=== PATIENT | male | born 1960 | race Caucasian/White ===

== ENCOUNTER 2020-01-19 18:57 | Inpatient (IN) | payer SELFPAY ==
[2020-01-19] VITALS (14 sets, daily range): BP systolic 135–175; BP diastolic 58–96; PULSE 108–146; RESP 18–41; TEMP 37–37.2; O2SAT 97–99; BMI 32.5
--- NOTE | 2020-01-19 19:11 | ECG_ITS ---
[facility] Test Date: 2020-01-19 Pat Name: Bari Casanova Department: Room: Gender: Male Beck Operator: : 1960 Requested By: Chantal Saini Order Number: [id number] Joao MD: Alvarado Julien M.D. Measurements Intervals [place] Rate: 114 P: 37 UT: 170 QRS: 66 QRSD: 108 T: -6 QT: 384 QTc: 529 Interpretive Statements SINUS TACHYCARDIA POSSIBLE LEFT ATRIAL ENLARGEMENT [-0.1mV P WAVE IN V1/V2] NONSPECIFIC ST & T-WAVE ABNORMALITY Compared to ECG 10/08/2018 22:37:24 T-wave abnormality now present Sinus rhythm no longer present Short UT interval no longer present Intraventricular conduction delay no longer present ST (T wave) deviation no longer present Prolonged QT interval no longer present Electronically Signed On 01-20-2020 21:12:57 CDT by Alvarado Julien M.D. [id number]
[2020-01-19 19:26] LABS: Basophils % 0.4 %; Hematocrit 38.3 % (42.0-52.0); Lymphocytes # 0.9 10^3/uL (0.8-4.8); Lymphocytes % 8.1 %; Mean Corpuscular HGB Conc 33.9 g/dL (30.0-36.0); Mean Corpuscular Hemoglobin 34.3 pg (28.0-34.0); Mean Corpuscular Volume 101.1 fL (80-94); Mean Platelet Volume 10.3 fL (7.4-10.4); Monocytes # 1.4 10^3/uL (0.2-0.9); Monocytes % 12.9 %; Neutrophils # 8.24 10^3/uL (1.8-7.7); Neutrophils % 77.9 %; Nucleated Red Blood Cells % 0 %; Platelet Count 166 10^3/cmm (130-400); Red Blood Count 3.79 10^6/uL (4.1-5.3); Red Cell Distribution Width 13.8 % (12.1-15.1); White Blood Count 10.6 10^3/uL (4.0-10.0)
[2020-01-19] MEDS: LORazepam 2 mg/mL INJ 1 mL IVP ×2 (19:30→22:36)
[2020-01-19] MEDS: sodium chloride 0.9% 1,000 ML 999 ML IV (19:30)
[2020-01-19 19:40] LABS: INR 3.04 (0.8-1.2)
[2020-01-19 19:48] LABS: Troponin(5th) Baseline 43 ng/L (0-15)
[2020-01-19 19:49] LABS: Alanine Aminotransferase 22 U/L (0-41); Alkaline Phosphatase 81 IU/L (40-130); Aspartate Amino Transferase 108 U/L (0-40); Blood Urea Nitrogen 14 mg/dL (6-20); Calcium 9.1 mg/dL (8.5-10.5); Carbon Dioxide 19 mmol/L (22-29); Chloride 94 mmol/L (98-107); Globulin 3.3 g/dL (1.3-4.6); Glomerular Filtration Rate 41.8 mL/min (90-130); Glucose 77 mg/dL (65-115); Lipase 26 U/L (13-60); Magnesium 1.1 mg/dL (1.7-2.3); Osmolality Calculated 277 mOsm/kg (285-295); Sodium 136 mmol/L (136-145); Total Bilirubin 1.7 mg/dL (0.15-1.2); Total Protein 7.3 g/dL (6.6-8.7)
--- NOTE | 2020-01-19 19:57 | CTR_ITS ---
PROCEDURE INFORMATION: Exam: CT Head Without Contrast Exam date and time: 01/19/2020 8:03 PM Age: 59 years old Clinical indication: Altered mental status/memory loss; Confusion or disorientation; Additional info: AMS, fall TECHNIQUE: Imaging protocol: Computed tomography of the head without contrast. Radiation optimization: All CT scans at this facility use at least one of these dose optimization techniques: automated exposure control; mA and/or kV adjustment per patient size (includes targeted exams where dose is matched to clinical indication); or iterative reconstruction. ADDITIONAL STUDY INFORMATION: Total DLP (mGy-cm): 1114.39 COMPARISON: CT head wo con* [id number] 10/08/2018 9:37 PM FINDINGS: There is mild low density in the periventricular white matter which may represent chronic small vessel ischemic disease in the appropriate clinical setting. There are prominent intracranial arterial calcifications. There is mild cerebral cortical volume loss. Ventricles do not appear significantly dilated. No depressed calvarial fracture is demonstrated. Again demonstrated is opacification in visualized right sphenoid sinus, most compatible with mucosal disease, with wall thickening of this sinus. Visualized mastoid air cells demonstrate no significant opacification. CT/CT head wo con* [id number] IMPRESSION: Probable chronic ischemic changes as discussed above. Radiation Dose CTDIVOL = (mGy): DLP = 1114.39 (mGy-cm)
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
[2020-01-19 20:06] LABS: Alcohol Level < 10 mg/dL (0-10)
[2020-01-19 20:07] LABS: Creatine Phosphokinase 7272 U/L (39-308)
--- NOTE | 2020-01-19 20:08 | USCV_ITS ---
MoisesBari quintana Age: 59 Gender: M : 1960 Exam Date: 01/19/2020 20:47 Ordering Phys: Chantal Vidal MD Technologist: Monica Sadler [place]am [place] [facility] [place]: Swelling HISTORY: Lower extremity swelling. PROCEDURES: Venous duplex imaging was performed in bilateral lower extremities. The following venous structures were evaluated: common femoral vein, profunda vein, proximal portion of the greater saphenous vein, superficial femoral vein, and the popliteal vein. In addition, the posterior tibial and peroneal trunk were evaluated. FINDINGS: Limited study due to patient motion. Patient was unable to follow instructions during exam. There is evidence of thrombus noted in the proximal right GSV extending to [place]. All other veins imaged appear to be free of thrombus at this time. The left popliteal and peroneals were not imaged due to patient refusal. CONCLUSIONS Right GSV superficial thrombophlebitis. No DVT but study limited by lack of patient cooperation. Dr. Ciara Wang DO (Electronically Signed) Final Date: 20 January 2020 07:47 S
[2020-01-19 20:19] LABS: Ammonia 15 umol/L (16-60); Lactic Sepsis W/Reflex 1.8 mmol/L (0.5-2.2)
[2020-01-19] MEDS: folic acid 1 MG, multivitamin inj 10 ML, thiamine 100 MG in sodium chloride 0.9% 1,000 ML 252.8 MG IV (20:30)
--- NOTE | 2020-01-19 21:11 | XR_ITS ---
WS: [id number] PORTABLE CHEST HISTORY: cough COMPARISON: 09/06/2018 Mild pulmonary venous congestion and haziness over both lungs. No focal consolidation. No pleural eff usion or pneumothorax. Cardiac size: Normal. Mediastinum/Aorta: Normal mediastinum. No osseous abnormality seen. XR/XR chest 1V portable [id number] IMPRESSION: Mild diffuse interstitial edema or viral pneumonia.
[2020-01-19 21:17] LABS: Amphetamines Screen Urine Negative (Negative); Barbiturates Screen Urine Negative (Negative); Benzodiazepines Screen Urine Negative (Negative); Cocaine Screen Urine Negative (Negative); Opiate Screen Urine Negative (Negative); PCP Screen Urine Negative (Negative); THC Screen Urine Negative (Negative)
--- NOTE | 2020-01-19 21:20 | P.HP_ITS ---
Providers/Chief Complaint Primary Care Provider: Beto Thomas Chief Complaint: AMS History of Present Illness Bari Casanova is a 59 year old male who presented with altered mental status. Apparently EMS was called from fall. When they arrived they found the patient at the top of the stairs, not recalling any fall. He was brought into the emergency department, with confusion. He had multiple confabulated stories. Emergency department physician was very concerned he was having active withdrawal and hallucinations. When I visited with the patient he had already received some Ativan. He would make eye contact with me briefly, and then start talking about Beavis and Butthead. Further history from the patient was not obt ainable. Review of Systems General: Reports: ROS unobtainable due to mental status (Unobtainable secondary to patient's confusion.) Medications/Allergies Home Medications Medication Instructions Recorded Confirmed Last Taken Type atenolol 50 mg PO DAILY 01/19/20 01/19/20 Unknown History potassium chloride 10 meq PO DAILY 01/19/20 01/19/20 Unknown History warfarin 5 mg PO DAILY 01/19/20 01/19/20 Unknown History Allergies Allergy/AdvReac Type Severity Reaction Status Date / Time No Known Allergies Allergy Verified 01/19/20 19:12 PFSH Acute PFSH: Medical History (Updated 01/19/20 @ 21:51 by Fran Milligan MD) Alcoholism History of DVT (deep vein thrombosis) On Coumadin Hypertension Social History (Updated 01/19/20 @ 21:45 by Farn Milligan MD) Alcohol intake: current Supplemental PFSH Information: Unable to obtain adequate surgical history secondary to mental status. Unable to obtain family history as well. Social history in part obtained from old records. History of drinking 1/5 a day and smoking a pack a day. Vitals/I&O/Wt Last Vital Signs Temp 98.9 F 01/19/20 19:01 Pulse 114 H 01/19/20 19:01 Resp 22 H 01/19/20 19:01 BP 146/88 01/19/20 19:01 Pulse Ox 98 01/19/20 19:01 Weight last 48 hrs Weight 99.79 kg Physical Exam Narrative: EXAM NARRATIVE: General exam is a white male, somewhat tremulous and tachycardic who appears to be having some hallucinations. HEENT: Pupils equally round. Oropharynx clear. Dentition poor Neck supple. No obvious tenderness. No lymphadenopathy. Cardiovascular tachycardic, no murmur Lungs clear no wheezing or crackles Abdomen is soft, obese. No obvious masses. was deferred Extremities no cyanosis clubbing or edema, cap refill brisk. Abrasions noted bilateral knees Skin no rash Neurologic: Moves all 4 extremities. No obvious focal deficits but certainly confused. Data : 01/19/20 19:19 01/19/20 19:19 Other data: Chest x-ray per my read poor inspiration causing appearance of vascular congestion. INR 3.04 Magnesium level 1.1 Total bili 1.7 AST 108, ALT 22, alk phos 81. CK 7272 Troponin 43 with repeat pending. Urinalysis with 2+ blood, positive nitrates, 1+ bacteria but 0-4 reds and 0-4 whites Urine drug screen negative Alcohol level less than 10 CT head by my read no obvious intracranial hemorrhage, awaiting final report EKG tachycardia, normal axis, nonspecific ST-T wave changes. Ammonia level 15 Lipase 26 A&P Assessment and plan (1) Alcohol withdrawal delirium: Admission to ICU Hydration CIWA protocol. Ativan, Librium. If worsens may need transition to Precedex Accu-Chek q. before meals at bedtime and as needed. Status: Acute (2) Rhabdomyolysis: IV fluids 175 cc an hour Status: Acute Qualifiers: Rhabdomyolysis type: non-traumatic Qualified Code(s): M62.82 - Rhabdomyolysis (3) Acute hypokalemia: Supplement Status: Acute (4) Hypomagnesemia: Supplement Status: Acute (5) Elevated bilirubin: Likely secondary to alcoholism and may have some element of cirrhosis. Recheck in the morning Status: Acute Additional A&P Information Possible UTI. Rocephin ordered by emergency department. Continue currently and await culture. History of DVT, on Coumadin, with slightly supratherapeutic INR. Check INR daily. Holding Coumadin currently in case procedure is needed, and INR being supratherapeutic. History of hypertension. Continue atenolol Full code SCDs for DVT prophylaxis. INR is supratherapeutic. Reassess Coumadin and s afety of it tomorrow. Attestations Medical Necessity Statement*: Will need greater than 2 midnight stay secondary to alcohol withdrawal Critical Care Time: 46 minutes spent in critical care time reviewing the patient, history, discussion with ER physician in this patient with severe alcohol withdrawal with abnormal vital signs, hallucinations with high risk for decompensation and seizures. 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
[2020-01-19 21:21] LABS: Protein Urine Trace (Negative); Specific Gravity, Urine 1.025 (1.005-1.030); Urine Appearance SL Hazy (CLEAR); Urine Color Yellow (Yellow); pH Urine 6 (5-7)
[2020-01-19 21:22] LABS: Add Urine Microscopic? YES; Bacteria Urine 1+; Bilirubin Urine Neg (NEGATIVE); Blood Urine 2+ (Negative); Glucose Urine UA Norm (Normal); Hyaline Casts Urine 0-4; Ketones Urine Negative (Negative); Leukocyte Esterase Urine Trace (Negative); Nitrate Urine Positive (Negative); RBC Urine 0-4 /hpf (0-2); Squamous Epithelial Cell Urine 0-4 (0-5); Transitional Epi Cells Urine 0-4 /hpf; Urobilinogen Urine Norm (Negative); WBC Urine 0-4 /hpf (0-5)
[2020-01-19 22:12] LABS: Troponin 5 2HR 29.59 ng/L (0-15); Troponin 5 2HR Delta -13.41 ABS# (0-10)
[2020-01-19] MEDS: magnesium sulfate premix 2 GM/50 ML PIGGYBACK IV (23:15)
[2020-01-19] MEDS: cefTRIAXone 1,000 MG in sodium chloride 0.9% (plus) 50 ML 100 MG IV (23:18)
[2020-01-19] MEDS: sodium chloride 0.9% 1,000 ML 175 ML IV (23:18)
[2020-01-19 23:22] LABS: Thyroid Stimulating Hormone 3.31 uIU/mL (0.27-4.20)
[2020-01-19] MEDS: dexmedetomidine 400 MCG in sodium chloride 0.9% (100 ml) 100 ML 5.2 MCG IV (23:43)
[2020-01-20] VITALS (94 sets, daily range): BP systolic 90–150; BP diastolic 55–120; PULSE 52–117; RESP 17–31; TEMP 36.6–36.9; O2SAT 75–99
[2020-01-20 00:03] LABS: Glucose Point of Care 88 mg/dL (70-110)
[2020-01-20] MEDS: potassium chloride premix 40 MEQ/100 ML PREMIX 25 MEQ IV (00:18)
[2020-01-20] MEDS: LORazepam 2 mg/mL INJ 1 mL IVP (00:38)
--- NOTE | 2020-01-20 00:41 | PC.NURSE ---
Patient received from transfer from ED. Patient transfered by bed, with assistance to ICu bed by 4 people. Pt on room air. AMS, with auditory and visual hallucinations. MD ordered for Indwelling Cath to be placed for accurate measurement of I&O's. Patient belongings received from transfer included a plastic bag with his wallet, and some home medications inside. Another larger plastic bag with clothes and shoes. All personal belongings at bedside with patient. SCD's placed on hold based off of Hx and current diagnosis of DVT. Some redness and warmth was noted on admission to bilateral lower extremities. Bilateral scrapings noted on elbows, knees and some bruising to left upper arm. Sedation support started by IV. Patient still has intermittent restlessness and incidences of hallucinations. Room visible from nurses station
--- NOTE | 2020-01-20 01:11 | ECG_ITS ---
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 Measurements Intervals [place] Rate: 65 P: 36 ND: 143 QRS: 79 QRSD: 117 T: 114 QT: 490 QTc: 511 Interpretive Statements SINUS RHYTHM MODERATE INTRAVENTRICULAR CONDUCTION DELAY [110+ ms QRS DURATION] NONSPECIFIC ST & T-WAVE ABNORMALITY PROLONGED QT INTERVAL Compared to ECG 01/19/2020 19:27:53 Intraventricular conduction delay now present Prolonged QT interval now present Sinus tachycardia no longer present T-wave abnormality still present Electronically Signed On 01-20-2020 21:14:54 CDT by Alvarado Julien M.D. [id number]
[2020-01-20 04:35] LABS: Basophils % 0.5 %; Eosinophils # 0.1 10^3/uL (0.0-0.8); Eosinophils % 1.3 %; Hematocrit 30.1 % (42.0-52.0); Lymphocytes # 1.1 10^3/uL (0.8-4.8); Lymphocytes % 17.6 %; Mean Corpuscular HGB Conc 33.2 g/dL (30.0-36.0); Mean Corpuscular Hemoglobin 34.7 pg (28.0-34.0); Mean Corpuscular Volume 104.5 fL (80-94); Mean Platelet Volume 10.2 fL (7.4-10.4); Monocytes # 0.9 10^3/uL (0.2-0.9); Monocytes % 15.1 %; Neutrophils # 3.95 10^3/uL (1.8-7.7); Nucleated Red Blood Cells % 0 %; Platelet Count 112 10^3/cmm (130-400); Red Blood Count 2.88 10^6/uL (4.1-5.3); Red Cell Distribution Width 14.1 % (12.1-15.1); White Blood Count 6.1 10^3/uL (4.0-10.0)
[2020-01-20 05:02] LABS: INR 3.27 (0.8-1.2)
[2020-01-20 05:13] LABS: Alanine Aminotransferase 20 U/L (0-41); Alkaline Phosphatase 56 IU/L (40-130); Aspartate Amino Transferase 94 U/L (0-40); Blood Urea Nitrogen 11 mg/dL (6-20); Carbon Dioxide 21 mmol/L (22-29); Chloride 101 mmol/L (98-107); Globulin 2.5 g/dL (1.3-4.6); Glomerular Filtration Rate 116.2 mL/min (90-130); Glucose 89 mg/dL (65-115); Magnesium 1.8 mg/dL (1.7-2.3); Osmolality Calculated 278 mOsm/kg (285-295); Sodium 136 mmol/L (136-145); Total Protein 5.5 g/dL (6.6-8.7)
--- NOTE | 2020-01-20 06:48 | PC.NURSE ---
Home meds in [facility].
[2020-01-20] MEDS: sodium chloride 0.9% 1,000 ML 175 ML IV ×2 (07:29→19:43)
[2020-01-20 07:40] LABS: Glucose Point of Care 86 mg/dL (70-110)
[2020-01-20] MEDS: dexmedetomidine 400 MCG in sodium chloride 0.9% (100 ml) 100 ML 5.2 MCG IV (08:06)
[2020-01-20 10:10] LABS: Creatine Phosphokinase 6856 U/L (39-308)
--- NOTE | 2020-01-20 10:32 | P.PN_ITS ---
Subjective Subjective: Interval history: Admitted last night for altered mental status because of alcohol withdrawal. On examination dated but arousable to vocal stimulus. On awaking patient is tremulous, shaky, having occasional auditory hallucinations. But can be corrected while talking. Denies of having any nausea or headache at present. Vitals have remained stable. Morning labs reviewed. Urine output on the lower side. Catheter in place. Vitals/I&O/Wt Last Vital Signs Temp 98.5 F 01/20/20 07:57 Pulse 66 01/20/20 08:00 Resp 19 H 01/20/20 08:00 BP 106/64 01/20/20 08:00 Pulse Ox 94 01/20/20 08:00 01/19/20 01/20/20 01/20/20 22:59 06:59 14:59 Intake Total 3211.2 / 3211.2 43.593 / 43.593 Output Total 600 / 600 Balance 2611.2 / 2611.2 43.593 / 43.593 Weight last 48 hrs Weight 96.615 kg Weight 99.79 kg Physical Exam Narrative: EXAM NARRATIVE: General exam is a white male, somewhat tremulous and tachycardic who appears to be having some hallucinations. HEENT: Pupils equally round. Oropharynx clear. Dentition poor Neck supple. No obvious tenderness. No lymphadenopathy. Cardiovascular tachycardic, no murmur Lungs clear no wheezing or crackles Abdomen is soft, obese. No obvious masses. was deferred Extremities no cyanosis clubbing or edema, cap refill brisk. Abrasions noted bilateral knees Skin no rash Neurologic: Moves all 4 extremities. No obvious focal deficits but certainly confused. Urinary Catheter Management^: Jamil: Cath Placed During This Visit: yes Reason for Continuing Indwelling Catheter: Accurate Measurement of Urinary Output in Critically Ill Patients Urinary Catheter Date of Insertion: 01/19/20 Urinary Catheter Time of Insertion: 23:52 Data : 01/20/20 04:15 01/20/20 04:15 A&P Assessment and plan (1) Alcohol withdrawal delirium: Status: Acute (2) Alcohol withdrawal seizure: Status: Acute (3) Rhabdomyolysis: IV fluids 150 cc an hour Status: Acute Qualifiers: Rhabdomyolysis type: non-traumatic Qualified Code(s): M62.82 - Rhabdomyolysis (4) DVT (deep venous thrombosis): Status: Acute Qualifiers: Affected thrombotic vein of extremity: unspecified lower extremity proximal vein Chronicity: unspecified DVT location: lower extremity Laterality: right Qualified Code(s): I82.4Y1 - Acute embolism and thrombosis of unspecified deep veins of right proximal lower extremity (5) Supratherapeutic INR: Status: Acute (6) Thrombocytopenia: Status: Acute (7) Hypomagnesemia: Supplement Status: Acute (8) Acute hypokalemia: Supplement Status: Acute Additional A&P Information Alcohol Withdrawal: Continue Precedex for now. CIWA still pretty high. Ativan as needed. Folic acid, vitamin B-12. Protonix for PUD prophylaxis, Zofran as needed. Accu-Chek before meals and bedtime as needed. History of alcohol withdrawal seizures: Patient has wound on his right knee and elbow with tongue bite. Is quite possible patient had withdrawal seizure yesterday. Will load with Keppra 1 g followed by 500 mg twice daily. Rhabdomyolysis : Most likely because of fall versus dehydration. Continue normal saline at 150 cc/h. Monitor input and output. If required will give minimal IV Lasix. History of DVT: Supratherapeutic INR: Takes warfarin at home. We will confirm with foster care social worker if can transition over to Eliquis given alcohol abuse. For now hold off on warfarin. Check INR daily. Goal INR 2-2.5. Replete electrolytes eating magnesium over 2, potassium around 4. History of hypertension: Continue home dose of atenolol. Will look for bradycardia with atenolol and Precedex at the same time. Full code SCDs for DVT prophylaxis. INR is supratherapeutic. Reassess Coumadin and safety of it tomorrow. Attestations Medical Necessity Statement*: Alcohol withdrawal, altered mental status, supratherapeutic INR, rhabdomyolysis Critical Care Time: Critical Care Time (min): 40 Coding Level of Care Code Acute Field Pipelines Supervisor for [facility] Diagnoses Alcohol withdrawal delirium F10.231 Alcohol withdrawal seizure F10.239; R56.9 Rhabdomyolysis M62.82 Rhabdomyolysis type: non-traumatic DVT (deep venous thrombosis) I82.4Y1 Affected thrombotic vein of extremity: unspecified lower extremity proximal vein Chronicity: unspecified DVT location: lower extremity Laterality: right Supratherapeutic INR R79.1 Thrombocytopenia D69.6 Hypomagnesemia E83.42 Acute hypokalemia E87.6
[2020-01-20] MEDS: folic acid 1 mg Tablet PO (10:33)
[2020-01-20] MEDS: multivitamin therapeutic Tablet 1 TAB PO (10:33)
[2020-01-20] MEDS: pantoprazole DR 40 mg Tablet PO (10:33)
[2020-01-20] MEDS: potassium chloride ER 10 mEq Tablet 40 MEQ PO (10:33)
[2020-01-20] MEDS: thiamine 100 mg Tablet PO (10:33)
[2020-01-20] MEDS: atenolol 50 mg Tablet PO (10:34)
[2020-01-20 11:46] LABS: Hepatitis A Antibody IgM Non-Reactive (Nonreactive); Hepatitis B Core AB, Total Non-Reactive (Nonreactive); Hepatitis B Surface AB 3.5 (0-8.5); Hepatitis B Surface Antigen Non-Reactive (Nonreactive); Hepatitis C Virus Antibody Non-Reactive (Nonreactive)
--- NOTE | 2020-01-20 13:42 | PC.CHAP ---
Pastoral Care Encounter/Spiritual Assessment Type of Contact [] Declined critical care paramedic visit [] Patient/Family/Request visit [] Outpatient visit [] Follow-up visit [] Physician referral [] Code/Alert [] Routine visit [] Staff referral [] Actively dying [x] Patient sleeping [] Family support [] [] Out of room [] Palliative care [] [] Receiving care in room [] Pre-surgical visit [] Trauma [] Long length of stay [x] ICU visit [] Other: Relational/Emotional Strength [] Patient feels connected with others/family/visitors/staff [] Distress [] Loneliness/isolation [] Abandonment Spirituality of Patient [] Person of Deepa [] Attends Samaritan of their Deepa [] Believes in Prayer [] Reads Bible or Nondenominational materials [] There are Spiritual issues to be addressed Website Project Manager Interventions [] Prayer [] Active listening [] Non-anxious presence [] Spiritual/emotional support [] Crisis/trauma care [] Spiritual counseling [] Bereavement support [] Provided bereavement packet [] Provided Bible/devotional materials [] Provided toy/stuffed animal, coloring book to patient or family member [] Provided Communion [] Anointing/[place] [] Salvation [] Completed spiritual assessment [] Other: Impact on Illness or Injury [] Angry [] Fearful [] Anxious [] Often cries [] Exhaustion [] Unable to work [] Unable to attend mormon [] Unable to walk/stand [] Unable to read [] Unable to drive [] Unable to eat/drink [] Unable to sleep [] Unable to be with family [] Patient intubated [] Other: Summary Patient was not awake at the time of the critical care paramedic visit. Nursing staff stated that the patient was under sedation. Patient visit was attempted by Website Project Manager Carter Arredondo. Time spent with patient 4 minutes
[2020-01-20 14:47] LABS: HIV 1 & 2 Antibody Non-Reactive (Non-Reactiv); HIV 1 & 2 Antigen Non-Reactive (Non-Reactiv)
[2020-01-20] MEDS: levETIRAcetam 500 mg Tablet PO (17:01)
[2020-01-20 17:58] LABS: Glucose Point of Care 63 mg/dL (70-110)
--- NOTE | 2020-01-20 19:00 | PC.NURSE ---
Report received, care assumed. Monitor alarms, plan of care et previous orders reviewed. Patient currently on Precedex gtt for management of ETOH withdrawal agitation. CIWA assessments reflect patient's status on gtt. Please see physical assessment et vital sign flowsheet for details.
[2020-01-20 21:26] LABS: Glucose Point of Care 96 mg/dL (70-110)
--- NOTE | 2020-01-20 23:17 | PC.NURSE ---
Unknown if patient will have needs for discharge but it should be evaluated. Patient had several falls at home prior to admission.
[2020-01-20] MEDS: cefTRIAXone 1,000 MG in sodium chloride 0.9% (plus) 50 ML 100 MG IV (23:39)
[2020-01-21] VITALS (46 sets, daily range): BP systolic 96–173; BP diastolic 56–102; PULSE 51–94; RESP 5–42; TEMP 36.6–37.2; O2SAT 85–100
--- NOTE | 2020-01-21 00:23 | PC.NURSE ---
Patient currently on Precedex gtt at 0.4 mcg/kg/hr. Patient is currently sleeping but will wake up to verbal command. Precedex gtt turned down to 0.2 mcg/kg/hr for midnight assessment. Will assess patient status et determine patient's ongoing Precedex needs. Please see physical assessment flowsheet for details.
[2020-01-21] MEDS: dexmedetomidine 400 MCG in sodium chloride 0.9% (100 ml) 100 ML 5.2 MCG IV (01:13)
[2020-01-21] MEDS: sodium chloride 0.9% 1,000 ML 150 ML IV ×4 (03:03→22:30)
[2020-01-21 04:38] LABS: Basophils % 0.8 %; Eosinophils # 0.2 10^3/uL (0.0-0.8); Hematocrit 32.5 % (42.0-52.0); Hemoglobin 10.7 g/dL (11.7-16.6); Lymphocytes # 1.1 10^3/uL (0.8-4.8); Mean Corpuscular HGB Conc 32.9 g/dL (30.0-36.0); Mean Corpuscular Hemoglobin 34.7 pg (28.0-34.0); Mean Corpuscular Volume 105.5 fL (80-94); Mean Platelet Volume 9.7 fL (7.4-10.4); Monocytes # 0.7 10^3/uL (0.2-0.9); Monocytes % 14.8 %; Neutrophils # 2.91 10^3/uL (1.8-7.7); Nucleated Red Blood Cells % 0 %; Platelet Count 127 10^3/cmm (130-400); Red Blood Count 3.08 10^6/uL (4.1-5.3); Red Cell Distribution Width 14.4 % (12.1-15.1)
[2020-01-21 04:54] LABS: INR 3.09 (0.8-1.2)
[2020-01-21 05:02] LABS: Alanine Aminotransferase 21 U/L (0-41); Alkaline Phosphatase 55 IU/L (40-130); Anion Gap 16.1 (5-19); Aspartate Amino Transferase 72 U/L (0-40); Blood Urea Nitrogen 9 mg/dL (6-20); Calcium 6.9 mg/dL (8.5-10.5); Carbon Dioxide 21 mmol/L (22-29); Chloride 106 mmol/L (98-107); Globulin 2.5 g/dL (1.3-4.6); Glomerular Filtration Rate 138.9 mL/min (90-130); Glucose 87 mg/dL (65-115); Magnesium 1.8 mg/dL (1.7-2.3); Osmolality Calculated 283 mOsm/kg (285-295); Potassium 4.1 mmol/L (3.5-5.1); Sodium 139 mmol/L (136-145); Total Bilirubin 0.8 mg/dL (0.15-1.2); Total Protein 5.5 g/dL (6.6-8.7)
[2020-01-21 05:25] LABS: Creatine Phosphokinase 3457 U/L (39-308)
--- NOTE | 2020-01-21 06:39 | PC.NURSE ---
Report given to next shift.
[2020-01-21] MEDS: chlordiazePOXIDE 25 mg Capsule 50 MG PO ×3 (07:14→18:02)
[2020-01-21] MEDS: LORazepam 2 mg Tablet PO (07:14)
--- NOTE | 2020-01-21 07:39 | P.PN_ITS ---
Subjective Subjective: Interval history: Patient doing better now. Has not received any Ativan. Precedex removed earlier today morning. On examination sitting in bed having breakfast. Is more awake and less jittery now. Denies of any nausea, vomiting, headache. States he came to the hospital because he has been having hallucinations. No hallucinations at present. Vitals/I&O/Wt Last Vital Signs Temp 97.9 F 01/21/20 04:00 Pulse 60 01/21/20 05:00 Resp 26 H 01/21/20 05:00 BP 116/73 01/21/20 05:00 Pulse Ox 99 01/21/20 05:00 01/20/20 01/21/20 01/21/20 22:59 06:59 14:59 Intake Total 350 / 2421.470 3556.007 / 2482.600 Output Total 750 / 750 450 / 1200 Balance -400 / 643.593 639.007 / 1282.600 Weight last 48 hrs Weight 101.151 kg Weight 96.615 kg Weight 99.79 kg Physical Exam Narrative: EXAM NARRATIVE: General exam is a white male, CIWA score: 8, mildly tremulous and tachycardic. HEENT: Pupils equally round. Oropharynx clear. Dentition poor Neck supple. No obvious tenderness. No lymphadenopathy. Cardiovascular tachycardic, no murmur Lungs clear no wheezing or crackles Abdomen is soft, obese. No obvious masses. was deferred Extremities no cyanosis clubbing or edema, cap refill brisk. Abrasions noted bilateral knees Skin no rash Neurologic: Moves all 4 extremities. No obvious focal deficits but certainly confused. Urinary Catheter Management^: Jamil: Cath Placed During This Visit: yes Reason for Continuing Indwelling Catheter: Accurate Measurement of Urinary Output in Critically Ill Patients Urinary Catheter Date of Insertion: 01/19/20 Urinary Catheter Time of Insertion: 23:52 Data : 01/21/20 04:30 01/21/20 04:30 A&P Assessment and plan (1) Alcohol withdrawal delirium: Status: Acute (2) Alcohol withdrawal seizure: Status: Acute (3) Rhabdomyolysis: IV fluids 150 cc an hour Status: Acute Qualifiers: Rhabdomyolysis type: non-traumatic Qualified Code(s): M62.82 - Rhabdomyolysis (4) DVT (deep venous thrombosis): Status: Acute Qualifiers: Affected thrombotic vein of extremity: unspecified lower extremity proximal vein Chronicity: unspecified DVT location: lower extremity Laterality: right Qualified Code(s): I82.4Y1 - Acute embolism and thrombosis of unspecified deep veins of right proximal lower extremity (5) Supratherapeutic INR: Status: Acute (6) Thrombocytopenia: Status: Acute (7) Hypomagnesemia: Supplement Status: Acute (8) Acute hypokalemia: Supplement Status: Acute Additional A&P Information Alcohol Withdrawal: We will stop Precedex and use as needed. Ativan as per CIWA score. We will start patient on Librium 50 every 6 hourly for now. Wean off gradually. Ativan as needed. Folic acid, vitamin B-12. Protonix for PUD prophylaxis, Zofran as needed. Accu-Chek before meals and bedtime as needed. History of alcohol withdrawal seizures: Patient has wound on his right knee and elbow with tongue bite. Is quite possible patient had withdrawal seizure yesterday. Will load with Keppra 1 g followed by 500 mg twice daily. Rhabdomyolysis : Most likely because of fall versus dehydration. Continue normal saline at 150 cc/h. Monitor input and output. If required will give minimal IV Lasix. History of DVT: Supratherapeutic INR: Takes warfarin at home. For now hold off on warfarin. Check INR daily. Goal INR 2-2.5. Replete electrolytes eating magnesium over 2, potassium around 4. History of hypertension: Continue home dose of atenolol. Will look for bradycardia with atenolol and Precedex at the same time. Full code SCDs for DVT prophylaxis. INR is supratherapeutic. Reassess Coumadin and safety of it tomorrow. Regular diet Discussed with the patient about importance of alcohol abstinence. Also discussed in detail if patient would like to go to inpatient rehab. He states he would not like that at this point as he had tried it in the past that did not help him. Attestations Medical Necessity Statement*: Alcohol withdrawal, altered mental status Time Spent in Patient Care: Greater than 35 minutes (>than 50% of time spent in counselling and/or direct pt care on unit) . Coding Level of Care Code Acute Certified Recreational Therapist for [facility] Diagnoses Alcohol withdrawal delirium F10.231 Alcohol withdrawal seizure F10.239; R56.9 Rhabdomyolysis M62.82 Rhabdomyolysis type: non-traumatic DVT (deep venous thrombosis) I82.4Y1 Affected thrombotic vein of extremity: unspecified lower extremity proximal vein Chronicity: unspecified DVT location: lower extremity Laterality: right Supratherapeutic INR R79.1 Thrombocytopenia D69.6 Hypomagnesemia E83.42 Acute hypokalemia E87.6
[2020-01-21 07:43] LABS: Glucose Point of Care 82 mg/dL (70-110)
[2020-01-21] MEDS: pantoprazole DR 40 mg Tablet PO (08:59)
[2020-01-21] MEDS: thiamine 100 mg Tablet PO (08:59)
[2020-01-21] MEDS: multivitamin therapeutic Tablet 1 TAB PO (08:59)
[2020-01-21] MEDS: levETIRAcetam 500 mg Tablet PO ×2 (08:59→18:02)
[2020-01-21] MEDS: potassium chloride ER 10 mEq Tablet 40 MEQ PO (09:00)
[2020-01-21] MEDS: folic acid 1 mg Tablet PO (09:00)
[2020-01-21] MEDS: atenolol 50 mg Tablet PO (09:00)
[2020-01-21 11:14] LABS: Glucose Point of Care 102 mg/dL (70-110)
[2020-01-21 17:14] LABS: Glucose Point of Care 92 mg/dL (70-110)
--- NOTE | 2020-01-21 19:00 | PC.NURSE ---
Report received from OG RN. Care assumed at this time. Please see physical assessment et vital sign flowsheets for details.
[2020-01-21 21:36] LABS: Glucose Point of Care 98 mg/dL (70-110)
--- NOTE | 2020-01-21 21:49 | PC.NURSE ---
Patient does not have a diagnosis of dementia however, he was admitted for ETOH withdrawal et was confused et hallucinating on admission. Patient currently is oriented without any hallucinations. Patient is not an elopement risk. He is here willingly et wishes to get help for his alcoholism.
[2020-01-21] MEDS: cefTRIAXone 1,000 MG in sodium chloride 0.9% (plus) 50 ML 100 MG IV (22:46)
[2020-01-22] VITALS (13 sets, daily range): BP systolic 123–174; BP diastolic 72–107; PULSE 75–90; RESP 18–22; TEMP 36.7–37.2; O2SAT 94–96
--- NOTE | 2020-01-22 00:18 | PC.NURSE ---
Patient currently sleeping. Will let patient rest et reassess at next interval or earlier if needed.
[2020-01-22] MEDS: chlordiazePOXIDE 25 mg Capsule 50 MG PO ×2 (01:31→09:10)
[2020-01-22 04:43] LABS: Basophils % 0.9 %; Eosinophils # 0.2 10^3/uL (0.0-0.8); Eosinophils % 4.1 %; Hematocrit 31.3 % (42.0-52.0); Hemoglobin 10.2 g/dL (11.7-16.6); Lymphocytes # 1.3 10^3/uL (0.8-4.8); Lymphocytes % 29.5 %; Mean Corpuscular HGB Conc 32.6 g/dL (30.0-36.0); Mean Corpuscular Hemoglobin 34.9 pg (28.0-34.0); Mean Corpuscular Volume 107.2 fL (80-94); Mean Platelet Volume 9.9 fL (7.4-10.4); Neutrophils # 1.89 10^3/uL (1.8-7.7); Nucleated Red Blood Cells % 0 %; Platelet Count 147 10^3/cmm (130-400); Red Blood Count 2.92 10^6/uL (4.1-5.3); White Blood Count 4.4 10^3/uL (4.0-10.0)
[2020-01-22 04:56] LABS: INR 1.94 (0.8-1.2)
[2020-01-22 05:05] LABS: Alanine Aminotransferase 21 U/L (0-41); Albumin Level 2.9 g/dL (3.5-5.2); Alkaline Phosphatase 55 IU/L (40-130); Anion Gap 11.6 (5-19); Aspartate Amino Transferase 92 U/L (0-40); Blood Urea Nitrogen 4 mg/dL (6-20); Calcium 7.7 mg/dL (8.5-10.5); Carbon Dioxide 24 mmol/L (22-29); Chloride 111 mmol/L (98-107); Globulin 2.6 g/dL (1.3-4.6); Glomerular Filtration Rate 138.9 mL/min (90-130); Glucose 94 mg/dL (65-115); Magnesium 1.5 mg/dL (1.7-2.3); Osmolality Calculated 291 mOsm/kg (285-295); Potassium 3.6 mmol/L (3.5-5.1); Sodium 143 mmol/L (136-145); Total Bilirubin 0.8 mg/dL (0.15-1.2); Total Protein 5.5 g/dL (6.6-8.7)
--- NOTE | 2020-01-22 07:06 | PC.NURSE ---
Report given to OG PANTOJA.
[2020-01-22 07:35] LABS: Glucose Point of Care 102 mg/dL (70-110)
[2020-01-22] MEDS: levETIRAcetam 500 mg Tablet PO ×2 (08:44→17:22)
[2020-01-22] MEDS: pantoprazole DR 40 mg Tablet PO (08:44)
[2020-01-22] MEDS: thiamine 100 mg Tablet PO (08:44)
[2020-01-22] MEDS: multivitamin therapeutic Tablet 1 TAB PO (08:44)
[2020-01-22] MEDS: folic acid 1 mg Tablet PO (08:45)
[2020-01-22] MEDS: atenolol 50 mg Tablet PO (08:45)
[2020-01-22] MEDS: potassium chloride ER 10 mEq Tablet 40 MEQ PO (08:45)
--- NOTE | 2020-01-22 10:00 | PC.CHAP ---
Pastoral Care Encounter/Spiritual Assessment Type of Contact [xx] Declined mounting machine operator visit [] Patient/Family/Request visit [] Outpatient visit [] Follow-up visit [] Physician referral [] Code/Alert [xx] Routine visit [] Staff referral [] Actively dying [] Patient sleeping [] Family support [] [] Out of room [] Palliative care [] [] Receiving care in room [] Pre-surgical visit [] Trauma [] Long length of stay [] ICU visit [] Other: Relational/Emotional Strength [] Patient feels connected with others/family/visitors/staff [] Distress [] Loneliness/isolation [] Abandonment Spirituality of Patient [] Person of Deepa [] Attends Jain of their Deepa [] Believes in Prayer [] Reads Bible or Yazidism materials [] There are Spiritual issues to be addressed Military Science Teacher Interventions [] Prayer [] Active listening [] Non-anxious presence [] Spiritual/emotional support [] Crisis/trauma care [] Spiritual counseling [] Bereavement support [] Provided bereavement packet [] Provided Bible/devotional materials [] Provided toy/stuffed animal, coloring book to patient or family member [] Provided Communion [] Anointing/[place] [] Salvation [] Completed spiritual assessment [] Other: Impact on Illness or Injury [] Angry [] Fearful [] Anxious [] Often cries [] Exhaustion [] Unable to work [] Unable to attend advent [] Unable to walk/stand [] Unable to read [] Unable to drive [] Unable to eat/drink [] Unable to sleep [] Unable to be with family [] Patient intubated [] Other: Summary: Pt is open to a mounting machine operator visit but wasn't feeling well enough today. Time spent with patient: 2 mins
--- NOTE | 2020-01-22 10:01 | P.PN_ITS ---
Subjective Subjective: Interval history: Patient doing a lot better. Denies of any nausea, vomiting, headache. Awake alert. States he is feeling weak. Denies of having any hallucinations. Patient has not required any Ativan in last 24 hours. Work appropriately with physical therapy. Vitals/I&O/Wt Last Vital Signs Temp 99 F 01/22/20 04:00 Pulse 90 01/22/20 08:00 Resp 26 H 01/21/20 20:30 BP 148/87 01/22/20 08:00 Pulse Ox 96 01/22/20 08:00 01/21/20 01/22/20 01/22/20 22:59 06:59 14:59 Intake Total 3237.5 / 4735.0 400 / 5135.0 250 / 250 Output Total 500 / 1000 700 / 1700 Balance 2737.5 / 3735.0 -300 / 3435.0 250 / 250 Weight last 48 hrs Weight 102.512 kg Weight 101.151 kg Physical Exam Narrative: EXAM NARRATIVE: General exam is a white male, CIWA score: 8, mildly tremulous . HEENT: Pupils equally round. Oropharynx clear. Dentition poor Neck supple. No obvious tenderness. No lymphadenopathy. Cardiovascular tachycardic, no murmur Lungs clear no wheezing or crackles Abdomen is soft, obese. No obvious masses. was deferred Extremities no cyanosis clubbing or edema, cap refill brisk. Abrasions noted bilateral knees Skin no rash Neurologic: Moves all 4 extremities. No obvious focal deficits but certainly confused. Urinary Catheter Management^: Jamil: Cath Placed During This Visit: yes Reason for Continuing Indwelling Catheter: Accurate Measurement of Urinary Output in Critically Ill Patients Urinary Catheter Date of Insertion: 01/19/20 Urinary Catheter Time of Insertion: 23:52 Data : 01/22/20 04:05 01/22/20 04:05 A&P Assessment and plan (1) Alcohol withdrawal delirium: Status: Acute (2) Alcohol withdrawal seizure: Status: Acute (3) Rhabdomyolysis: IV fluids 150 cc an hour Status: Acute Qualifiers: Rhabdomyolysis type: non-traumatic Qualified Code(s): M62.82 - Rhabdomyolysis (4) DVT (deep venous thrombosis): Status: Acute Qualifiers: Affected thrombotic vein of extremity: unspecified lower extremity proximal vein Chronicity: unspecified DVT location: lower extremity Laterality: right Qualified Code(s): I82.4Y1 - Acute embolism and thrombosis of unspecified deep veins of right proximal lower extremity (5) Supratherapeutic INR: Status: Acute (6) Thrombocytopenia: Status: Acute (7) Hypomagnesemia: Supplement Status: Acute (8) Acute hypokalemia: Supplement Status: Acute Additional A&P Information Alcohol Withdrawal: We will stop Precedex and use as needed. Ativan as per CIWA score. Decrease Librium to 25 every 8. Folic acid, vitamin B-12. Protonix for PUD prophylaxis, Zofran as needed. Accu-Chek before meals and bedtime as needed. History of alcohol withdrawal seizures: Patient has wound on his right knee and elbow with tongue bite. Keppra 500 mg twice daily. Will most likely need that as an outpatient as well. Rhabdomyolysis : Resolving. Most likely because of fall versus dehydration. Patient tolerating oral diet well. We will decrease normal saline to 75 cc/h. Monitor input and output. And output 1700 last 24 hours. Improving. We will continue to monitor. We will keep urine catheter for 1 more day. DC tomorrow. History of DVT: Supratherapeutic INR: Takes warfarin at home. INR 1.94 today. We will restart him on warfarin 5 mg daily. Most likely patient needs to be discharged on 4 mg daily. Goal INR 2-2.5. Replete electrolytes eating magnesium over 2, potassium around 4. History of hypertension: Continue home dose of atenolol. Full code SCDs for DVT prophylaxis. INR is supratherapeutic. Reassess Coumadin and safety of it tomorrow. Regular diet Discussed with the patient about importance of alcohol abstinence. Also discussed in detail if patient would like to go to inpatient rehab. He states he would not like that at this point as he had tried it in the past that did not help him. Transfer to floor. Attestations Medical Necessity Statement*: Alcohol withdrawal, rhabdomyolysis Time Spent in Patient Care: Greater than 35 minutes (>than 50% of time spent in counselling and/or direct pt care on unit) . Coding Level of Care Code Acute Textile Technical Officer for [facility] Diagnoses Alcohol withdrawal delirium F10.231 Alcohol withdrawal seizure F10.239; R56.9 Rhabdomyolysis M62.82 Rhabdomyolysis type: non-traumatic DVT (deep venous thrombosis) I82.4Y1 Affected thrombotic vein of extremity: unspecified lower extremity proximal vein Chronicity: unspecified DVT location: lower extremity Laterality: right Supratherapeutic INR R79.1 Thrombocytopenia D69.6 Hypomagnesemia E83.42 Acute hypokalemia E87.6
--- NOTE | 2020-01-22 12:23 | PC.NURSE ---
report called for transfer to [id number] bed 2
--- NOTE | 2020-01-22 13:12 | PC.NURSE ---
transfer to floor
[2020-01-22] MEDS: sodium chloride 0.9% 1,000 ML 150 ML IV (14:21)
[2020-01-22] MEDS: warfarin 2 mg Tablet 4 MG PO (14:21)
[2020-01-22] MEDS: chlordiazePOXIDE 25 mg Capsule PO (17:22)
[2020-01-22] MEDS: neomycin-poly-bacitracin oint 28 gm 1 APPLIC TOPICAL (17:22)
[2020-01-22] MEDS: cefTRIAXone 1,000 MG in sodium chloride 0.9% (plus) 50 ML 100 MG IV (23:28)
[2020-01-23] VITALS: BP 156/89; PULSE 80; RESP 20; TEMP 36.8; O2SAT 99
[2020-01-23] MEDS: chlordiazePOXIDE 25 mg Capsule PO ×2 (01:34→09:01)
[2020-01-23] MEDS: sodium chloride 0.9% 1,000 ML 75 ML IV ×2 (02:57→03:03)
[2020-01-23 04:00] VITALS: BP 173/66; PULSE 80; RESP 18; TEMP 37; O2SAT 96
--- NOTE | 2020-01-23 05:43 | PC.NURSE ---
SHIFT SUMMARY Slept most of the night. Has had some confusion. When questioned he usually knows where he is but confused about time, date and why he is here. Reorients but then forgets. Has tried to get OOB by himself few times with bed alarm going off. This am was trying to get up thinking he needed to go to the bathroom. Jamil catheter tubing was completely torn apart so was removed. Had ripped scab off abrasion on right elbow and had blood over bed. CLC done and wound was cleaned with NS and dressed with Telfa/Kerlex wrap. Was up to BSC with assist and no BM. Did get up better with nurses this morning and more steady on feet. Has SOB with exertion and has a moist sounding cough but cough effort is not strong. Enc cough. IV infusing without difficulty. Had 2900ml of urine output before breaking Jamil. IV fluids infusing at 75ml/hr rate
[2020-01-23 07:20] VITALS: BP 137/78; PULSE 87; RESP 18; TEMP 36.7; O2SAT 96
[2020-01-23] MEDS: atenolol 50 mg Tablet PO (08:39)
[2020-01-23] MEDS: thiamine 100 mg Tablet PO (08:39)
[2020-01-23] MEDS: folic acid 1 mg Tablet PO (08:39)
[2020-01-23] MEDS: multivitamin therapeutic Tablet 1 TAB PO (08:39)
[2020-01-23] MEDS: pantoprazole DR 40 mg Tablet PO (08:39)
[2020-01-23] MEDS: potassium chloride ER 10 mEq Tablet 40 MEQ PO (08:39)
[2020-01-23] MEDS: neomycin-poly-bacitracin oint 28 gm 1 APPLIC TOPICAL (09:00)
[2020-01-23] MEDS: cyanocobalamin 1,000 mcg Tablet 1000 MCG PO (09:01)
[2020-01-23 11:20] LABS: INR 1.34 (0.8-1.2)
[2020-01-23 11:35] LABS: Basophils % 0.7 %; Eosinophils # 0.2 10^3/uL (0.0-0.8); Eosinophils % 3.7 %; Hematocrit 34.9 % (42.0-52.0); Hemoglobin 11.3 g/dL (11.7-16.6); Lymphocytes # 1.3 10^3/uL (0.8-4.8); Mean Corpuscular HGB Conc 32.4 g/dL (30.0-36.0); Mean Corpuscular Hemoglobin 34.2 pg (28.0-34.0); Mean Corpuscular Volume 105.8 fL (80-94); Mean Platelet Volume 9.3 fL (7.4-10.4); Monocytes # 1.3 10^3/uL (0.2-0.9); Monocytes % 23.6 %; Neutrophils # 2.55 10^3/uL (1.8-7.7); Neutrophils % 47.6 %; Nucleated Red Blood Cells % 0 %; Platelet Count 191 10^3/cmm (130-400); Red Cell Distribution Width 14.6 % (12.1-15.1); White Blood Count 5.4 10^3/uL (4.0-10.0)
[2020-01-23 11:44] LABS: Alanine Aminotransferase 30 U/L (0-41); Albumin Level 3.3 g/dL (3.5-5.2); Alkaline Phosphatase 60 IU/L (40-130); Anion Gap 14.8 (5-19); Aspartate Amino Transferase 102 U/L (0-40); Blood Urea Nitrogen 2 mg/dL (6-20); Calcium 7.6 mg/dL (8.5-10.5); Carbon Dioxide 24 mmol/L (22-29); Chloride 107 mmol/L (98-107); Globulin 2.3 g/dL (1.3-4.6); Glomerular Filtration Rate 171.4 mL/min (90-130); Glucose 100 mg/dL (65-115); Osmolality Calculated 290 mOsm/kg (285-295); Potassium 3.8 mmol/L (3.5-5.1); Sodium 142 mmol/L (136-145); Total Bilirubin 0.8 mg/dL (0.15-1.2); Total Protein 5.6 g/dL (6.6-8.7)
[2020-01-23 11:54] VITALS: BP 153/90; PULSE 82; RESP 16; TEMP 36.6; O2SAT 97
[2020-01-23 12:00] LABS: Vitamin B12 958 pg/mL (232-1245)
[2020-01-23 12:24] LABS: Folate Level > 20.0 ng/mL (4.5-32.2)
[2020-01-23] MEDS: FUROsemide 10 mg/mL SDV 4mL 40 MG IVP (13:07)
[2020-01-23] MEDS: warfarin 2 mg Tablet 4 MG PO (13:10)
--- NOTE | 2020-01-23 13:18 | P.PN_ITS ---
Subjective Subjective: Interval history: This morning patient is sleeping, when awoken, he is quite indifferent to me, does not know who I am, after several minutes of redirection, he is able to recognize I am his physician, alert oriented x2, has a bit of a flat affect, but is able to answer most questions appropriately, no fevers, chills, no nausea, no vomiting, no chest pain, according to physical therapy and nursing staff, still quite weak, generalized weakness, unsteady on his feet Vitals/I&O/Wt Last Vital Signs Temp 97.8 F 01/23/20 11:54 Pulse 82 01/23/20 11:54 Resp 16 01/23/20 11:54 BP 153/90 01/23/20 11:54 Pulse Ox 97 01/23/20 11:54 01/22/20 01/23/20 01/23/20 22:59 06:59 14:59 Intake Total 1360 / 1610 250 / 1860 840 / 840 Output Total 1200 / 1200 2900 / 4100 Balance 160 / 410 -2650 / -2240 840 / 840 Weight last 48 hrs Weight 100.924 kg Weight 102.512 kg Physical Exam Const: COMMON NORMALS: no acute distress ORIENTATION/CONSCIOUSNESS: Yes callum ke, Yes oriented to person, Yes oriented to place and Yes confused; not oriented to time HENMT: COMMON NORMALS: normocephalic HEAD & SCALP: normocephalic Neck/C-Spine: COMMON NORMALS: no JVD Resp: COMMON NORMALS: normal respiratory effort, No retractions, No use of accessory muscles and clear to auscultation bilaterally AUSCULTATION: clear to auscultation bilaterally Cardio: COMMON NORMALS: no JVD, regular rate, regular rhythm, S1 normal heart sound present and S2 normal heart sound present RATE: regular rate RHYTHM: regular rhythm HEART SOUNDS: S1 normal heart sound present and S2 normal heart sound present GI: COMMON NORMALS: Normal to inspection, nondistended, normoactive bowel sounds present, Soft to palpation, non-tender, No hepatosplenomegaly present, no masses and no bruits PALPATION: Yes Soft to palpation and Yes No hepatosplenomegaly present Extremity: COMMON NORMALS: capillary refill normal, no clubbing, cyanosis or edema, no calf tenderness and no pedal edema Neuro: SENSORIUM/ORIENTATION: Yes oriented to person, Yes oriented to place and No oriented to time Psych: ATTITUDE: Yes Withdrawn affect present SPEECH: Yes minimal MOOD & AFFECT: Yes apathetic and Yes Flat affect present ATTENTION/CONCENTRATION: Yes attention grossly impaired MEMORY/COGNITION: Yes memory grossly intact Urinary Catheter Management^: Jamil: Cath Placed During This Visit: yes, but has since been removed by the nurse Reason for Continuing Indwelling Catheter: Not indwelling catheter Urinary Catheter Date of Insertion: 01/19/20 Urinary Catheter Time of Insertion: 23:52 Date Urinary Catheter Removed: 01/23/20 Time Urinary Catheter Discontinued: 06:15 Data : 01/23/20 10:56 01/23/20 10:56 A&P Assessment and plan (1) Wernicke encephalopathy: -Given patient's persistent episodes of confusion, unsteadiness on his feet, although his B12 and folate levels are within normal limits, I am highly suspicious of Wernicke's encephalopathy -Continue folic acid, B12, thiamine -We will continue physical therapy interventions -Continue to monitor her neurologic status Status: Acute (2) Alcohol withdrawal delirium: Status: Acute (3) Alcohol withdrawal seizure: Status: Acute (4) Rhabdomyolysis: IV fluids 150 cc an hour Status: Acute Qualifiers: Rhabdomyolysis type: non-traumatic Qualified Code(s): M62.82 - Rhabdomyolysis (5) DVT (deep venous thrombosis): Status: Acute Qualifiers: Affected thrombotic vein of extremity: unspecified lower extremity proximal vein Chronicity: unspecified DVT location: lower extremity Laterali ty: right Qualified Code(s): I82.4Y1 - Acute embolism and thrombosis of unspecified deep veins of right proximal lower extremity (6) Supratherapeutic INR: Status: Acute (7) Thrombocytopenia: Status: Acute (8) Hypomagnesemia: Supplement Status: Acute (9) Acute hypokalemia: Supplement Status: Acute Additional A&P Information Alcohol Withdrawal: Currently off Precedex Ativan as per CIWA score. Decrease Librium to 25 mg every 12 hours Folic acid, vitamin B-12. Protonix for PUD prophylaxis, Zofran as needed. Accu-Chek before meals and bedtime as needed. History of alcohol withdrawal seizures: Patient has wound on his right knee and elbow with tongue bite. Stop Keppra Rhabdomyolysis : Resolving. Most likely because of fall versus dehydration. Patient tolerating oral diet well. Stop fluids as slightly fluid overloaded Monitor input and output. And output 1700 last 24 hours. Improving. We will continue to monitor. DC Jamil catheter History of DVT: Supratherapeutic INR: Takes warfarin at home. INR 1.34 today. Continue Coumadin 4 mg daily Goal INR 2-2.5. Replete electrolytes eating magnesium over 2, potassium around 4. History of hypertension: Continue home dose of atenolol. Full code SCDs for DVT prophylaxis. Coumadin for DVT prophylaxis Regular diet Discussed with the patient about importance of alcohol abstinence. Also discussed in detail if patient would like to go to inpatient rehab. He states he would not like that at this point as he had tried it in the past that did not help him. Transfer to floor. 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
[2020-01-23 13:39] VITALS: PULSE 77; RESP 16; O2SAT 96
[2020-01-23 15:36] VITALS: PULSE 77; RESP 16; O2SAT 96
--- NOTE | 2020-01-23 15:36 | PM.DCS ---
Discharge Providers Date of Admission: 01/19/20 21:19 Date of Discharge: January 23, 2020 Attending Provider at Admission: Fran Milligan MD Attending Provider at Discharge: Dadnre Aguiar MD Primary Care Provider: Beto Thomas Diagnoses at Discharge Discharge Diagnosis (1) Wernicke encephalopathy: Status: Acute (2) Alcohol withdrawal delirium: Status: Acute (3) Alcohol withdrawal seizure: Status: Acute (4) Rhabdomyolysis: Status: Acute Qualifiers: Rhabdomyolysis type: non-traumatic Qualified Code(s): M62.82 - Rhabdomyolysis (5) DVT (deep venous thrombosis): Status: Acute Qualifiers: Affected thrombotic vein of extremity: unspecified lower extremity proximal vein Chronicity: unspecified DVT location: lower extremity Laterality: right Qualified Code(s): I82.4Y1 - Acute embolism and thrombosis of unspecified deep veins of right proximal lower extremity (6) Supratherapeutic INR: Status: Acute (7) Thrombocytopenia: Status: Acute (8) Hypomagnesemia: Status: Acute (9) Acute hypokalemia: Status: Acute Reason for Visit Reason for Visit: AMS Hospital Course Discharge Summary: This is a 59-year-old male with a past medical history of DVT on Coumadin, alcoholism, hypertension who presents to [facility] due to alcohol withdrawal delirium. Patient was admitted to [facility], ICU, for alcohol withdrawal, alcohol withdrawal seizures, hypokalemia, hypomagnesemia, rhabdomyolysis, received Ativan, Precedex, Librium, CIWA protocol, IV fluids. Patient clinically improved, CIWA scores were minimal, transitioned to the general medical floors, kept on a Librium taper, thiamine, folic acid, B12, multivitamin. Patient through his hospital admission, has had unsteadiness, required help with ambulation with physical therapy, has had a flat affect, I suspect he has a component of Wernicke's encephalopathy. I have recommended short-term group home stay, or even home health care, however patient refuses. I had a lengthy discussion with patient, that he should stop consuming alcohol, local resources were discussed, I have discharged him on B12, folic acid, thiamine, with close follow-up with primary care provider as outpatient. On admission he was found to have supratherapeutic INR, discharged on 4 mg of Coumadin daily, recheck INR in 1 week. Physical Exam Const: COMMON NORMALS: no acute distress and patient oriented x3 HENMT: COMMON NORMALS: normocephalic HEAD & SCALP: normocephalic Neck/C-Spine: COMMON NORMALS: no JVD Resp: COMMON NORMALS: normal respiratory effort, No retractions, No use of accessory muscles and clear to auscultation bilaterally AUSCULTATION: clear to auscultation bilaterally Cardio: COMMON NORMALS: no JVD, regular rate, regular rhythm, S1 normal heart sound present and S2 normal heart sound present RATE: regular rate RHYTHM: regular rhythm HEART SOUNDS: S1 normal heart sound present and S2 normal heart sound present GI: COMMON NORMALS: Normal to inspection, nondistended, normoactive bowel sounds present, Soft to palpation, non-tender, No hepatosplenomegaly present, no masses and no bruits PALPATION: Yes Soft to palpation and Yes No hepatosplenomegaly present Extremity: COMMON NORMALS: capillary refill normal, no clubbing, cyanosis or edema, no calf tenderness and no pedal edema Neuro: COMMON NORMALS: patient oriented x3 Psych: COMMON NORMALS: mental status grossly normal Urinary Catheter Management^: Jamil: Cath Placed During This Visit: yes, but has since been removed by the nurse Reason for Continuing Indwelling Catheter: Not indwelling catheter Urinary Catheter Date of Insertion: 01/19/20 Urinary Catheter Time of Insertion: 23:52 Date Urinary Catheter Removed: 01/23/20 Time Urinary Catheter Discontinued: 06:15 Discharge Data Data Completed and Pending: Completed Studies During Hospitalization Category Date Time Status CT head wo con* [id number] Stat Cat Scan 01/19/20 19:57 Completed XR chest 1V [place] ble [id number] Routine Exams 01/19/20 21:11 [place] [id number] Urgent Ultrasound 01/19/20 20:08 Completed Pending at discharge Category Date Time Status Methylmalonic Aci d Stat Lab 01/23/20 10:56 Received Labs from last 24 hours 01/23/20 01/23/20 01/23/20 10:56 10:56 10:56 WBC 5.4 RBC 3.30 L Hgb 11.3 L Hct 34.9 L MCV 105.8 H MCH 34.2 H MCHC 32.4 RDW 14.6 Plt Count 191 MPV 9.3 Neut % (Auto) 47.6 Lymph % (Auto) 24.0 Brooke % (Auto) 23.6 Eos % (Auto) 3.7 Baso % (Auto) 0.7 Neut # (Auto) 2.55 Lymph # (Auto) 1.3 Brooke # (Auto) 1.3 H Eos # (Auto) 0.2 Baso # (Auto) 0.0 Nucleated RBC % (a uto) 0 Nucleated RBCs # 0.0 PT INR Sodium 142 Potassium 3.8 Chloride 107 Carbon Dioxide 24 Anion Gap 14.8 BUN 2 L Creatinine 0.5 L GFR Calculation 171.4 H Glucose 100 Calculated Osmolal ity 290 Calcium 7.6 L Total Bilirubin 0.8 AST 102 H ALT 30 Alkaline Phosphata se 60 Total Protein 5.6 L Albumin 3.3 L Globulin 2.3 Vitamin B12 958 Methylmalonic Acid Pending Folate > 20.0 01/23/20 10:56 WBC RBC Hgb Hct MCV MCH MCHC RDW Plt Count MPV Neut % (Auto) Lymph % (Auto) Brooke % (Auto) Eos % (Auto) Baso % (Auto) Neut # (Auto) Lymph # (Auto) Brooke # (Auto) Eos # (Auto) Baso # (Auto) Nucleated RBC % (a uto) Nucleated RBCs # PT 17.10 H INR 1.34 H Sodium Potassium Chloride Carbon Dioxide Anion Gap BUN Creatinine GFR Calculation Glucose Calculated Osmolal ity Calcium Total Bilirubin AST ALT Alkaline Phosphata se Total Protein Albumin Globulin Vitamin B12 Methylmalonic Acid Folate Vitals: Last Vital Signs Temp 97.8 F 01/23/20 11:54 Pulse 77 01/23/20 13:39 Resp 16 01/23/20 13:39 BP 153/90 01/23/20 11:54 Pulse Ox 96 01/23/20 13:39 Discharge Plan Discharge Patient Disposition: Home Condition: Stable Prescriptions: New Vitamin B-12 1,000 mcg Tablet 1,000 mcg PO DAILY 30 Days Qty: 30 RF: 0 chlordiazepoxide HCl 10 mg capsule See Rx Instructions .ROUTE .COMPLEX Qty: 17.5 RF: 0 pantoprazole 40 mg Tablet,Delayed Release (Dr/Ec) 40 mg PO DAILY 30 Days Qty: 30 RF: 0 folic acid 1 mg Tablet 1 mg PO DAILY 30 Days Qty: 30 RF: 0 Vitamin B-1 (mononitrate) 100 mg Tablet 100 mg PO DAILY 30 Days Qty: 30 RF: 0 Thera 400 mcg Tablet 1 tab PO DAILY 30 Days Qty: 30 RF: 0 warfarin 2 mg Tablet 4 mg PO DAILY@1400 14 Days Qty: 14 RF: 0 Continued atenolol 50 mg 50 mg PO DAILY RF: 0 potassium chloride 10 meq 10 meq PO DAILY RF: 0 Discontinued warfarin 5 mg 5 mg PO DAILY RF: 0 Discharge Orders: Discharge Order (Routine); Ordered 01/23/20 Ordered By: Jayson Baez Other Ambulatory Orders: Prothrombin Time INR (Routine) Timeframe: 1 Week Facility: [facility] - Location: Lab - Main Lab Ordered By: Jayson Baez Referrals: Beto Thomas [Primary Care Provider] - 1 week (On the next please call and schedule a post hospital follow up with your Primary care provider to be seen in one week. ) Discharge Diet: Cardiac Discharge Activity: Resume usual activity Patient Instructions: Chlordiazepoxide/Clidinium (By mouth), Chlordiazepoxide (By mouth), Warfarin (By mouth), Thiamine (Vitamin B-1) (By mouth), Folic Acid (By mouth), Pantoprazole (By mouth), Vitamin B-12 (Cyanocobalamin) (By mouth), Abuse of Alcohol (DC), Acute Delirium (DC), Alcohol Withdrawal (DC) Activity Restrictions/Additional Instructions: -Please abstain from alcohol consumption -Please take vitamin B12, folic acid, multivitamin, vitamin B1 as prescribed -Please follow-up with primary care in 1 week -Please ambulate with care, if you fall come back to the emergency room -Continue Coumadin 4 mg p.o. daily, recheck INR in 1 week -Take Librium taper as prescribed, if episodes of seizures come back to the emergency room Discharge Attestations Time Spent in Discharge Care*: less than 30 min Quality Metrics Clinical Quality Measures During this hospital stay, did patient experience: None Coding Level of Care Code Acute [employer] for [employer] Diagnoses Wernicke encephalopathy E51.2 Alcohol withdrawal delirium F10.231 Alcohol withdrawal seizure F10.239; R56.9 Rhabdomyolysis M62.82 Rhabdomyolysis type: non-traumatic DVT (deep venous thrombosis) I82.4Y1 Affected thrombotic vein of extremity: unspecified lower extremity proximal vein Chronicity: unspecified DVT location: lower extremity Laterality: right Supratherapeutic INR R79.1 Thrombocytopenia D69.6 Hypomagnesemia E83.42 Acute hypokalemia E87.6
--- NOTE | 2020-01-25 10:47 | PC.SOCIAL ---
Spoke with Zeina at pharmacy. They are unable to split the Chlordiazepoxide capsules for the last 5 days of treatment which is ordered as .5 cap for five days. Clarified with Dr Baez and he wants 1 10mg tab every other day for 3 doses for the third set of instructions for titrating dose. Called Zeina back and gave instructions as follows per Dr Baez for this medication. Take 2 capsules a day for 5 days, then 1 capsule a day for 5 days then 1 capsule every other day for 3 days to complete treatment. Zeina read back instructions and verbalized understanding.
[2020-01-27 02:57] LABS: Methylmalonic Acid 168 nmol/L (87-318)
== END 2020-01-23 15:53 | disposition home or self-care (01) | DRG 897 ==
LOC: ER 20:39 → ICU 21:37 → MEDSURG 01-22 13:15
PROVIDERS: Emergency Medicine; Family Medicine; Admitting Provider Internal Medicine; PCP Family Medicine; Visit Provider Student in an Organized Health Care Education/Training Program
DX: F10.231 Alcohol dependence with withdrawal delirium (principal); M62.82 Rhabdomyolysis; N39.0 Urinary tract infection, site not specified; E51.2 Wernicke's encephalopathy; Z79.01 Long term (current) use of anticoagulants; Z86.718 Personal history of other venous thrombosis and embolism; I10 Essential (primary) hypertension; F17.210 Nicotine dependence, cigarettes, uncomplicated; E87.6 Hypokalemia; E83.42 Hypomagnesemia; D69.6 Thrombocytopenia, unspecified; R79.1 Abnormal coagulation profile; I80.01 Phlebitis and thrombophlebitis of superficial vessels of right lower extremity
CPT/HCPCS: 12345; 36415; 36416; 51702; 70450; 71045; 80053; 80306; 80307; 81001; 82140; 82550; 82607; 82746; 82962; 83605; 83690; 83735; 83921; 84443; 84484; 85025; 85610; 86705; 86706; 86709; 86803; 87340; 87806; 93005; 93970; 94640; 96372; 96375; 97110; 97116; 97161; 99284; J0610; J0696; J1940; J1953; J2060; J3411; J3475; J3480; J3490; J3535; J7030